=== PATIENT | female | born 1955 | race African-American/Black ===

== ENCOUNTER → 2016-11-14 | Outpatient (CLI) | payer MEDICARE, OTHER ==
[~2016-11-14] MED LIST: ALLEGRA 180MG180 MG PO; COLACE 100100 MG/CAP PO; DYAZIDE 25 MG-31 CAP PO; IPRATROPIUM BROM3 M1 IH; LEXAPRO 10MG10 MG PO; LEXAPRO20 MG PO; MAXZIDE-25MG TA1 TAB PO; MOBIC 7.5MG7.5 MG PO; MOBIC15 MG PO; PATADAY 2.5 ML2.5 ML OU; PLAQUENIL 200M200 MG PO; PREDNISONE 5MG5 MG PO; PREDNISONE10 MG PO; PREDNISONE20 MG PO; PREMARIN 0.60.625 M1 PO; RT ADVAIR 528 DISKUS IH; RT SPIRIVA18 MCG IH; SINGULAIR 110 MG/TAB PO; STOOL SOFTENER100 M2 PO; SYNTHROID0.05 MG/TA PO; VITAMIN D32000 I1 PO; WELLBUTRIN SR150 M1 PO; WELLBUTRIN XL150 MG PO; XOPENEX HF0.045 MG/A IH; ZETONNA NS; ZITHROMAX 250M250 MG PO
== END ==
LOC: COL.VAS 08:40
DX: I27.2 Other secondary pulmonary hypertension (principal); R06.02 Shortness of breath

== ENCOUNTER → 2016-11-16 | Outpatient (CLI) | payer MEDICARE, OTHER | LOC: COL.RAD 09:21 | DX: K22.8 Other specified diseases of esophagus (principal) ==